=== PATIENT | female | born 1970 | race Caucasian/White ===

== ENCOUNTER 2016-06-10 23:50 | Emergency (ER) | payer BC ==
[~2016-06-10] VITALS: Ht 160 cm; Wt 83.9 kg
[~2016-06-10 23:50] MED LIST: 'PARAFON FORTE500 M1 PO; ALBUTEROL0.09 MG/A1 INH; AMOXICILLIN500 M1; AMOXICILLIN500 M2 PO; AMOXICILLIN500 MG PO; ANAPROX DS550 MG PO; ARTHROTEC 50 MG75 MG PO; ATIVAN0.5 MG PO; AUGMENTIN 500 M1 TAB PO; AUGMENTIN 875875 MG PO; BACTRIM DS 8001 TA1 PO; CEFADROXIL500 M1 PO; CEFDINIR300 MG PO; CIPRO500 MG PO; CIPROFLOXACIN500 MG PO; CLARITIN10 MG; CLARITIN10 MG PO; DAILY MULTIPLE1 TA6 PO; DAYPRO600 M1 PO; DIFLUCAN150 MG PO; FLONASE 0.05% 121 EA NAS; FLONASE ALLERG9.9 ML NS; HYDROCODONE BIT1 T11 PO; LEVAQUIN500 M2 PO; MACROBID100 M1 PO; MEDROL DOSEPAK4 MG PO; MOTRIN800 MG PO; NAPROSYN500 MG PO; NORCO 325 MG-51 TAB PO; PREDNICOT20 MG PO; PREDNISONE10 MG PO; PREDNISONE20 M1 PO; PROPRANOLOL HCL20 MG PO; PYRIDIUM200 MG PO; ROBAXIN750 MG PO; ROBITUSSIN AC 110 ML PO; TOBRADEX 0.1%-0.5 ML OPH; TRAMADOL HCL50 MG PO; WELLBUTRIN XL300 MG PO; ZITHROMAX Z PA250 MG PO; ZITHROMAX250 MG PO; ZYRTEC10 MG PO
[2016-06-11] MEDS ORDERED: PROVERA10 MG PO
[2016-06-11] MEDS ORDERED: AMOXICILLIN500 M2 PO (01:16)
[2016-06-11] MEDS ORDERED: ROBITUSSIN AC 110 ML PO (01:16)
[2016-07-19] MEDS ORDERED: HYOSCYAMINE0.125 M1 PO (15:03)
[2016-08-03] MEDS ORDERED: ANAPROX DS550 MG PO (23:46)
== END 2016-06-11 01:23 | disposition home or self-care (01) ==
LOC: ED 23:50
DX: J40 Bronchitis, not specified as acute or chronic (principal); J01.90 Acute sinusitis, unspecified; F17.200 Nicotine dependence, unspecified, uncomplicated; Z79.899 Other long term (current) drug therapy

== ENCOUNTER 2016-11-19 23:10 | Emergency (ER) | payer BC ==
[~2016-11-19] VITALS: Ht 160 cm; Wt 90.7 kg
[~2016-11-19 23:10] MED LIST changes: +HYOSCYAMINE0.125 M1 PO; +PROVERA10 MG PO
[2016-11-19] MEDS ORDERED: AMOXICILLIN500 M2 PO (23:33)
[2016-11-19] MEDS ORDERED: VENTOLIN H0.09 MG/AC INH (23:33)
== END 2016-11-20 00:06 | disposition home or self-care (01) ==
LOC: ED 23:10
DX: J20.9 Acute bronchitis, unspecified (principal); J32.0 Chronic maxillary sinusitis; F17.200 Nicotine dependence, unspecified, uncomplicated; Z79.899 Other long term (current) drug therapy

== ENCOUNTER 2017-01-23 03:08 | Emergency (ER) | payer BC ==
[~2017-01-23] VITALS: Ht 160 cm; Wt 102.1 kg
[~2017-01-23 03:08] MED LIST changes: +VENTOLIN H0.09 MG/AC INH
[2017-01-23] MEDS ORDERED: KENALOG 0.1%80 GM T (03:38)
[2017-01-23] MEDS ORDERED: ZITHROMAX250 MG PO (03:38)
== END 2017-01-23 03:55 | disposition home or self-care (01) ==
LOC: ED 03:08
DX: J01.00 Acute maxillary sinusitis, unspecified (principal); L25.5 Unspecified contact dermatitis due to plants, except food; G89.29 Other chronic pain; Z79.899 Other long term (current) drug therapy

== ENCOUNTER 2017-02-04 01:26 | Emergency (ER) | payer BC ==
[~2017-02-04] VITALS: Ht 160 cm; Wt 95.3 kg
[~2017-02-04 01:26] MED LIST changes: +KENALOG 0.1%80 GM T
[2017-02-04] MEDS ORDERED: SILVADENE20 GM T (02:28)
== END 2017-02-04 02:50 | disposition home or self-care (01) ==
LOC: ED 01:26
DX: T22.10XA Burn of first degree of shoulder and upper limb, except wrist and hand, unspecified site, initial encounter (principal); T65.891A Toxic effect of other specified substances, accidental (unintentional), initial encounter; L23.1 Allergic contact dermatitis due to adhesives; G89.29 Other chronic pain; Z98.890 Other specified postprocedural states; Z79.899 Other long term (current) drug therapy; X58.XXXA Exposure to other specified factors, initial encounter; Y93.89 Activity, other specified; Y92.89 Other specified places as the place of occurrence of the external cause; Y99.9 Unspecified external cause status

== ENCOUNTER 2017-07-12 23:09 | Emergency (ER) | payer BC ==
[~2017-07-12] VITALS: Ht 160 cm; Wt 99.8 kg
[~2017-07-12 23:09] MED LIST changes: +SILVADENE20 GM T
[2017-07-12] MEDS ORDERED: ZITHROMAX250 MG PO (23:27)
[2017-07-12] MEDS ORDERED: FLONASE ALLERG9.9 ML NAS (23:27)
== END 2017-07-12 23:49 | disposition home or self-care (01) ==
LOC: ED 23:09
DX: J01.90 Acute sinusitis, unspecified (principal); F17.200 Nicotine dependence, unspecified, uncomplicated

== ENCOUNTER 2017-12-16 23:13 | Emergency (ER) | payer BC ==
[~2017-12-16] VITALS: Ht 160 cm; Wt 99.8 kg
[~2017-12-16 23:13] MED LIST changes: +FLONASE ALLERG9.9 ML NAS
[2017-12-16] MEDS ORDERED: FLONASE ALLERG9.9 ML NAS (23:40)
== END 2017-12-17 00:05 | disposition home or self-care (01) ==
LOC: ED 23:13
DX: J34.89 Other specified disorders of nose and nasal sinuses (principal); F17.200 Nicotine dependence, unspecified, uncomplicated; G89.29 Other chronic pain; Z79.899 Other long term (current) drug therapy; Z79.2 Long term (current) use of antibiotics

== ENCOUNTER 2018-06-09 04:25 | Emergency (ER) | payer OTHER ==
[~2018-06-09] VITALS: Ht 160 cm; Wt 95.3 kg
[2018-06-09] MEDS ORDERED: BENADRYL ALLERG25 M5 PO (04:47)
== END 2018-06-09 05:00 | disposition home or self-care (01) ==
LOC: ED 04:25
DX: R21 Rash and other nonspecific skin eruption (principal); G89.29 Other chronic pain; Z87.442 Personal history of urinary calculi; Z79.899 Other long term (current) drug therapy

== ENCOUNTER 2018-08-05 21:39 | Emergency (ER) | payer OTHER ==
[~2018-08-05] VITALS: Ht 160 cm; Wt 99.8 kg
[~2018-08-05 21:39] MED LIST changes: +BENADRYL ALLERG25 M5 PO
[2018-08-05] MEDS ORDERED: MOBIC7.5 MG PO (23:01)
== END 2018-08-05 23:15 | disposition home or self-care (01) ==
LOC: ED 21:39
DX: M25.562 Pain in left knee (principal); M17.0 Bilateral primary osteoarthritis of knee; F17.200 Nicotine dependence, unspecified, uncomplicated

== ENCOUNTER 2018-10-26 23:35 | Emergency (ER) | payer OTHER ==
[~2018-10-26] VITALS: Ht 167.6 cm; Wt 74.4 kg
[~2018-10-26 23:35] MED LIST changes: +MOBIC7.5 MG PO
[2018-10-27] MEDS ORDERED: ZITHROMAX250 MG PO (00:04)
== END 2018-10-27 00:27 | disposition home or self-care (01) ==
LOC: ED 23:35
DX: J01.00 Acute maxillary sinusitis, unspecified (principal); G89.29 Other chronic pain

== ENCOUNTER 2018-11-02 00:13 | Emergency (ER) | payer OTHER ==
[~2018-11-02] VITALS: Ht 160 cm; Wt 95.3 kg
[2018-11-02] MEDS ORDERED: AUGMENTIN 875875 MG PO (00:46)
[2018-11-02] MEDS ORDERED: DELTASONE20 M1 PO (00:46)
== END 2018-11-02 01:04 | disposition home or self-care (01) ==
LOC: ED 00:13
DX: J32.9 Chronic sinusitis, unspecified (principal); R42 Dizziness and giddiness; R05 Cough

== ENCOUNTER 2018-12-04 12:20 | Emergency (ER) | payer OTHER ==
[~2018-12-04] VITALS: Ht 160 cm; Wt 98.0 kg
[~2018-12-04 12:20] MED LIST changes: +DELTASONE20 M1 PO
[2018-12-04] MEDS ORDERED: MEDROL DOSEPAK4 MG PO (14:40)
[2018-12-04] MEDS ORDERED: Motrin,Rufen800 MG PO (14:40)
[2018-12-04] MEDS ORDERED: ROBAXIN500 M1 PO (14:40)
== END 2018-12-04 14:52 | disposition home or self-care (01) ==
LOC: ED 12:20
DX: G89.29 Other chronic pain (principal); M25.552 Pain in left hip; Z79.2 Long term (current) use of antibiotics; Z79.899 Other long term (current) drug therapy

== ENCOUNTER 2019-01-23 23:21 | Emergency (ER) | payer OTHER ==
[~2019-01-23] VITALS: Ht 160 cm; Wt 95.3 kg
[~2019-01-23 23:21] MED LIST changes: +Motrin,Rufen800 MG PO; +ROBAXIN500 M1 PO
[2019-01-24] MEDS ORDERED: Motrin,Rufen800 MG PO (00:43)
== END 2019-01-24 01:19 | disposition home or self-care (01) ==
LOC: ED 23:21
DX: S46.911A Strain of unspecified muscle, fascia and tendon at shoulder and upper arm level, right arm, initial encounter (principal); Z79.899 Other long term (current) drug therapy; Z79.2 Long term (current) use of antibiotics; W01.0XXA Fall on same level from slipping, tripping and stumbling without subsequent striking against object, initial encounter; Y93.89 Activity, other specified; Y92.89 Other specified places as the place of occurrence of the external cause; Y99.8 Other external cause status

== ENCOUNTER 2019-02-20 17:12 | Emergency (ER) | payer OTHER ==
[~2019-02-20] VITALS: Ht 157.4 cm; Wt 95.3 kg
[2019-02-20] MEDS ORDERED: AUGMENTIN 875-875 MG PO (17:39)
== END 2019-02-20 17:44 | disposition home or self-care (01) ==
LOC: ED 17:12
DX: J01.90 Acute sinusitis, unspecified (principal); J02.9 Acute pharyngitis, unspecified; F17.200 Nicotine dependence, unspecified, uncomplicated

== ENCOUNTER 2019-04-23 22:48 | Emergency (ER) | payer OTHER ==
[~2019-04-23] VITALS: Ht 157.4 cm; Wt 95.3 kg
[~2019-04-23 22:48] MED LIST changes: +AUGMENTIN 875-875 MG PO
[2019-04-24] MEDS ORDERED: PROAIR HFA8.5 GM INH (00:09)
[2019-04-24] MEDS ORDERED: ALLEGRA-D 24 H1 EACH PO (00:09)
== END 2019-04-24 00:19 | disposition home or self-care (01) ==
LOC: ED 22:48
DX: J20.9 Acute bronchitis, unspecified (principal); G43.909 Migraine, unspecified, not intractable, without status migrainosus; F17.200 Nicotine dependence, unspecified, uncomplicated

== ENCOUNTER 2019-05-02 15:42 | Emergency (ER) | payer OTHER ==
[~2019-05-02] VITALS: Ht 157.4 cm; Wt 95.3 kg
[~2019-05-02 15:42] MED LIST changes: +ALLEGRA-D 24 H1 EACH PO; +PROAIR HFA8.5 GM INH
[2019-05-02] MEDS ORDERED: DICLOFENAC SOD75 MG PO (15:47)
[2019-05-02] MEDS ORDERED: TESSALON PERLE100 M1 PO (16:18)
[2019-05-02] MEDS ORDERED: DOXYCYCLINE100 M3 PO (16:18)
== END 2019-05-02 16:56 | disposition home or self-care (01) ==
LOC: ED 15:42
DX: J18.9 Pneumonia, unspecified organism (principal); F17.200 Nicotine dependence, unspecified, uncomplicated

== ENCOUNTER → 2019-05-10 | Outpatient (CLI) | payer OTHER ==
[~2019-05-10] MED LIST changes: +DICLOFENAC SOD75 MG PO; +DOXYCYCLINE100 M3 PO; +TESSALON PERLE100 M1 PO
== END | disposition home or self-care (01) ==
LOC: RAD 13:24
DX: J98.4 Other disorders of lung (principal)

== ENCOUNTER 2019-07-17 22:35 | Emergency (ER) | payer OTHER ==
[~2019-07-17] VITALS: Ht 157.4 cm; Wt 95.3 kg
== END 2019-07-18 00:34 | disposition home or self-care (01) ==
LOC: ED 22:35
DX: G43.909 Migraine, unspecified, not intractable, without status migrainosus (principal); H53.149 Visual discomfort, unspecified; E07.9 Disorder of thyroid, unspecified; Z79.899 Other long term (current) drug therapy; Z79.2 Long term (current) use of antibiotics

== ENCOUNTER 2019-08-21 11:46 | Emergency (ER) | payer OTHER ==
[~2019-08-21] VITALS: Ht 157.4 cm; Wt 93.0 kg
[2019-08-21 13:56] LABS: BASO # 0.1 10*3/uL (0.0-0.1); BASO % 0.6 % (0.0-1.0); EOS # 0.3 10*3/uL (0.0-0.4); HEMATOCRIT 42.3 % (37.0-47.0); HEMOGLOBIN 13.3 g/dl (12.0-16.0); LYMPH # 1.1 10*3/uL (1.3-4.4); LYMPH % 13.6 % (27.0-41.0); MEAN CELL VOLUME 94.4 fl (81.0-99.0); MEAN CORPUSCULAR HGB 29.7 pg (27.0-31.0); MEAN CORPUSCULAR HGB CONC 31.4 g/dl (33.0-37.0); MEAN PLATELET VOLUME 10.9 fl (9.6-12.3); MONO # 0.7 10*3/uL (0.1-1.0); MONO % 8.7 % (3.0-9.0); NEUT % 72.8 % (47.0-73.0); PLATELET COUNT AUTOMATED 168 10*3/uL (130-400); RED BLOOD COUNT 4.48 10*6/uL (4.10-5.10); RED CELL DISTRI WIDTH 13.4 % (0-14.5); WHITE BLOOD COUNT 8.3 10*3/uL (4.8-10.8)
[2019-08-21 14:06] LABS: ALKALINE PHOSPHATASE 93 U/L (45-117); BUN 21 mg/dl (7-24); CHLORIDE 111 mmol/L (98-107); CREATININE 0.64 mg/dL (0.55-1.02); POTASSIUM 3.5 mmol/L (3.5-5.1); SGOT/AST 8 IU/L (3-35); SGPT/ALT 18 U/L (12-78); SODIUM 142 mmol/L (136-145); TOTAL PROTEIN 6.2 gm/dL (6.4-8.2)
[2019-08-21] MEDS ORDERED: ERYTHROCIN STE250 M2 PO (14:41)
[2019-08-21] MEDS ORDERED: PROVENTIL HFA6.7 GM INH (14:41)
== END 2019-08-21 14:50 | disposition home or self-care (01) ==
LOC: ED 11:46
PROVIDERS: Nurse Practitioner Family
DX: J98.8 Other specified respiratory disorders (principal); J02.9 Acute pharyngitis, unspecified; F41.9 Anxiety disorder, unspecified; F32.9 Major depressive disorder, single episode, unspecified; G43.909 Migraine, unspecified, not intractable, without status migrainosus; F17.200 Nicotine dependence, unspecified, uncomplicated; Z88.0 Allergy status to penicillin; Z88.8 Allergy status to other drugs, medicaments and biological substances; Z79.899 Other long term (current) drug therapy

== ENCOUNTER → 2020-02-16 | Outpatient (CLI) | payer OTHER ==
[~2020-02-16] MED LIST changes: +ERYTHROCIN STE250 M2 PO; +PROVENTIL HFA6.7 GM INH
== END | disposition home or self-care (01) ==
LOC: COVID19 02:55
PROVIDERS: ATTEND Family Medicine
DX: J45.21 Mild intermittent asthma with (acute) exacerbation (principal); Z11.59 Encounter for screening for other viral diseases

== ENCOUNTER → 2020-03-13 | Outpatient (CLI) | payer OTHER ==
[2020-03-13 15:40] LABS: BASO % 0.4 % (0.0-1.0); EOS # 0.4 10*3/uL (0.0-0.4); HEMATOCRIT 43.5 % (37.0-47.0); LYMPH # 1.4 10*3/uL (1.3-4.4); LYMPH % 17.4 % (27.0-41.0); MEAN CELL VOLUME 92.4 fl (81.0-99.0); MEAN CORPUSCULAR HGB 29.9 pg (27.0-31.0); MEAN CORPUSCULAR HGB CONC 32.4 g/dl (33.0-37.0); MONO # 0.6 10*3/uL (0.1-1.0); MONO % 7.9 % (3.0-9.0); NEUT # 5.5 10*3/uL (2.3-7.9); NEUT % 68.9 % (47.0-73.0); PLATELET COUNT AUTOMATED 217 10*3/uL (130-400); RED BLOOD COUNT 4.71 10*6/uL (4.10-5.10); RED CELL DISTRI WIDTH 13.7 % (0-14.5)
[2020-03-14 08:08] LABS: HEP B CORE AB, IGM Negative (Negative); HEPATITIS B SURFACE AG Negative (Negative); HEPATITIS C VIRUS ANTIBODY 0.7 s/co (0.0-0.9); RHEUMATOID ARTHRITIS FACTOR <10.0 IU/mL (0.0-13.9)
[2020-03-14 14:08] LABS: ANTI-RNP ANTIBODIES <0.2 AI (0.0-0.9)
[2020-03-15 00:06] LABS: CCP ANTIBODIES IGG/IGA 9 units (0-19); LUPUS DRVVT 42.4 sec (0.0-47.0); PTT-LA 39.7 sec (0.0-51.9)
[2020-03-15 01:07] LABS: LUPUS REFLEX INTERPRETATION Comment: (.)
[2020-03-17 17:06] LABS: HLA-B27 ANTIGEN Negative (.)
== END | disposition home or self-care (01) ==
LOC: LAB 15:04
PROVIDERS: ATTEND Orthopaedic Surgery
DX: M17.0 Bilateral primary osteoarthritis of knee (principal); M25.561 Pain in right knee; M25.562 Pain in left knee

== ENCOUNTER → 2020-05-04 | Outpatient (CLI) | payer OTHER ==
[2020-05-04 12:28] LABS: BASO # 0.1 10*3/uL (0.0-0.1); BASO % 0.8 % (0.0-1.0); EOS # 0.5 10*3/uL (0.0-0.4); EOS % 6.9 % (1.0-4.0); HEMATOCRIT 42.5 % (37.0-47.0); LYMPH # 1.5 10*3/uL (1.3-4.4); LYMPH % 23.1 % (27.0-41.0); MEAN CELL VOLUME 92.2 fl (81.0-99.0); MEAN CORPUSCULAR HGB 30.2 pg (27.0-31.0); MEAN CORPUSCULAR HGB CONC 32.7 g/dl (33.0-37.0); MEAN PLATELET VOLUME 10.9 fl (9.6-12.3); MONO # 0.5 10*3/uL (0.1-1.0); MONO % 7.7 % (3.0-9.0); NEUT % 61.2 % (47.0-73.0); PLATELET COUNT AUTOMATED 218 10*3/uL (130-400); RED BLOOD COUNT 4.61 10*6/uL (4.10-5.10); RED CELL DISTRI WIDTH 13.4 % (0-14.5); WHITE BLOOD COUNT 6.5 10*3/uL (4.8-10.8)
[2020-05-04 12:48] LABS: ALBUMIN 3.4 gm/dl (3.1-4.5); ALKALINE PHOSPHATASE 73 U/L (45-117); BUN 17 mg/dl (7-24); CHLORIDE 109 mmol/L (98-107); CREATININE 0.71 mg/dL (0.55-1.02); SGOT/AST 14 IU/L (3-35); SGPT/ALT 19 U/L (12-78); SODIUM 141 mmol/L (136-145); TOTAL PROTEIN 6.8 gm/dL (6.4-8.2)
== END | disposition home or self-care (01) ==
LOC: LAB 11:48
PROVIDERS: ATTEND Orthopaedic Surgery
DX: Z01.818 Encounter for other preprocedural examination (principal); J44.9 Chronic obstructive pulmonary disease, unspecified; J45.909 Unspecified asthma, uncomplicated; R53.83 Other fatigue; M19.90 Unspecified osteoarthritis, unspecified site; Z79.899 Other long term (current) drug therapy

== ENCOUNTER → 2020-08-04 | Outpatient (CLI) | payer OTHER ==
[2020-08-04 15:25] LABS: BASO % 0.5 % (0.0-1.0); BILIRUBIN Negative (Negative); BLOOD 3+ (Negative); CLARITY Cloudy (Clear); COLOR Yellow (Yellow); EOS # 0.4 10*3/uL (0.0-0.4); EOS % 5.1 % (1.0-4.0); GLUCOSE Negative (Negative); HEMATOCRIT 44.7 % (37.0-47.0); KETONE Negative (Negative); LEUKO ESTERASE 2+ (Negative); LYMPH # 1.6 10*3/uL (1.3-4.4); LYMPH % 18.8 % (27.0-41.0); MEAN CORPUSCULAR HGB 29.4 pg (27.0-31.0); MEAN PLATELET VOLUME 10.9 fl (9.6-12.3); MONO # 0.6 10*3/uL (0.1-1.0); MONO % 7.2 % (3.0-9.0); NEUT # 5.7 10*3/uL (2.3-7.9); NITRITE Negative (Negative); PH 5.5 (4.5-8.0); PLATELET COUNT AUTOMATED 223 10*3/uL (130-400); RED BLOOD COUNT 4.86 10*6/uL (4.10-5.10); RED CELL DISTRI WIDTH 12.7 % (0-14.5); UROBILINOGEN 0.2 E.U./dl (0.0-1.0); WHITE BLOOD COUNT 8.3 10*3/uL (4.8-10.8)
[2020-08-04 15:35] LABS: ACT PARTIAL THROMBO TIME 28.8 SECONDS (20.0-32.1)
[2020-08-04 15:37] LABS: BACTERIA 2+; RBC 21-30 rbc/hpf (0-2); WBC 51-100 wbc/hpf (0-5)
[2020-08-04 15:40] LABS: ALBUMIN 3.2 gm/dl (3.1-4.5); ALKALINE PHOSPHATASE 94 U/L (45-117); BUN 15 mg/dl (7-24); CHLORIDE 109 mmol/L (98-107); POTASSIUM 3.8 mmol/L (3.5-5.1); SGOT/AST 11 IU/L (3-35); SGPT/ALT 18 U/L (12-78); SODIUM 142 mmol/L (136-145); TOTAL PROTEIN 6.6 gm/dL (6.4-8.2)
== END | disposition home or self-care (01) ==
LOC: LAB 14:51
PROVIDERS: ATTEND Orthopaedic Surgery
DX: Z01.812 Encounter for preprocedural laboratory examination (principal); J45.909 Unspecified asthma, uncomplicated; J44.9 Chronic obstructive pulmonary disease, unspecified; M19.90 Unspecified osteoarthritis, unspecified site; Z79.899 Other long term (current) drug therapy

== ENCOUNTER 2021-02-06 08:10 | Emergency (ER) | payer OTHER ==
[~2021-02-06] VITALS: Ht 157.4 cm; Wt 88.9 kg
[2021-02-06] MEDS ORDERED: TYLENOL325 M1 PO (09:14)
[2021-02-06] MEDS ORDERED: NAPROXEN250 MG PO (09:14)
== END 2021-02-06 09:17 | disposition home or self-care (01) ==
LOC: ED 08:10
DX: M25.521 Pain in right elbow (principal); Z88.0 Allergy status to penicillin; Z88.1 Allergy status to other antibiotic agents; X50.9XXA Other and unspecified overexertion or strenuous movements or postures, initial encounter; Y93.89 Activity, other specified; Y92.89 Other specified places as the place of occurrence of the external cause; Y99.8 Other external cause status

== ENCOUNTER → 2021-09-20 | Day surgery (SDC) | payer OTHER ==
[~2021-09-20] VITALS: Ht 157.4 cm; Wt 97.1 kg
[~2021-09-20] MED LIST changes: +ADV 100/50 INH; +CYMBALTA30 MG PO; +NAPROXEN250 MG PO; +TYLENOL325 M1 PO
[2021-09-20 07:08] VITALS: BP 142/91
[2021-09-20 07:53] VITALS: BP 113/68
[2021-09-20 08:08] VITALS: BP 122/81
[2021-09-20 08:23] VITALS: BP 118/80
== END | disposition home or self-care (01) ==
LOC: SDC 09-17 14:00
PROVIDERS: ATTEND Orthopaedic Surgery
DX: M65.332 Trigger finger, left middle finger (principal); M65.842 Other synovitis and tenosynovitis, left hand; M65.331 Trigger finger, right middle finger; F41.9 Anxiety disorder, unspecified; F32.9 Major depressive disorder, single episode, unspecified; G43.909 Migraine, unspecified, not intractable, without status migrainosus; F17.210 Nicotine dependence, cigarettes, uncomplicated; Z79.899 Other long term (current) drug therapy

== ENCOUNTER 2021-10-31 20:51 | Emergency (ER) | payer OTHER ==
[~2021-10-31] VITALS: Ht 160 cm; Wt 95.7 kg
[2021-10-31] MEDS ORDERED: NAPROXEN250 MG PO (22:08)
== END 2021-10-31 22:11 | disposition home or self-care (01) ==
LOC: ED 20:51
DX: M25.532 Pain in left wrist (principal); Z79.899 Other long term (current) drug therapy

== ENCOUNTER → 2021-11-30 | Outpatient (CLI) | payer OTHER | END | disposition home or self-care (01) | LOC: ORTHO 01:45 | PROVIDERS: ATTEND Orthopaedic Surgery | DX: S43.52XA Sprain of left acromioclavicular joint, initial encounter (principal); X58.XXXA Exposure to other specified factors, initial encounter; Y93.89 Activity, other specified; Y92.89 Other specified places as the place of occurrence of the external cause; Y99.8 Other external cause status ==

== ENCOUNTER 2022-02-01 23:03 | Emergency (ER) | payer OTHER ==
[2022-02-02 01:38] LABS: BASO # 0.1 10*3/uL (0.0-0.1); BASO % 0.7 % (0.0-1.0); EOS # 0.5 10*3/uL (0.0-0.4); EOS % 5.1 % (1.0-4.0); HEMATOCRIT 42.5 % (37.0-47.0); LYMPH # 2.2 10*3/uL (1.3-4.4); LYMPH % 22.3 % (27.0-41.0); MEAN CELL VOLUME 92.6 fl (81.0-99.0); MEAN CORPUSCULAR HGB 30.7 pg (27.0-31.0); MEAN CORPUSCULAR HGB CONC 33.2 g/dl (33.0-37.0); MEAN PLATELET VOLUME 10.8 fl (9.6-12.3); MONO # 0.9 10*3/uL (0.1-1.0); MONO % 8.5 % (3.0-9.0); NEUT # 6.3 10*3/uL (2.3-7.9); NEUT % 62.8 % (47.0-73.0); PLATELET COUNT AUTOMATED 230 10*3/uL (130-400); RED BLOOD COUNT 4.59 10*6/uL (4.10-5.10); RED CELL DISTRI WIDTH 13.5 % (0-14.5)
[2022-02-02 01:55] LABS: ALKALINE PHOSPHATASE 93 U/L (45-117); BUN 16 mg/dl (7-24); CHLORIDE 107 mmol/L (98-107); CREATININE 0.75 mg/dL (0.55-1.02); POTASSIUM 3.4 mmol/L (3.5-5.1); SGOT/AST 14 IU/L (3-35); SGPT/ALT 24 U/L (12-78); SODIUM 139 mmol/L (136-145); TOTAL PROTEIN 6.4 gm/dL (6.4-8.2)
[2022-02-02] MEDS ORDERED: VIBRAMYCIN100 MG PO (03:58)
== END 2022-02-02 04:01 | disposition left against medical advice (07) ==
LOC: ED 23:03
PROVIDERS: Emergency Medicine
DX: S81.802A Unspecified open wound, left lower leg, initial encounter (principal); Z79.899 Other long term (current) drug therapy; X58.XXXA Exposure to other specified factors, initial encounter; Y93.89 Activity, other specified; Y92.89 Other specified places as the place of occurrence of the external cause; Y99.8 Other external cause status

== ENCOUNTER → 2022-03-07 | Day surgery (SDC) | payer OTHER ==
[2022-03-05 12:45] VITALS: BP 143/89
[2022-03-06 13:34] LABS: BUN 9 mg/dl (7-24); CHLORIDE 109 mmol/L (98-107); CREATININE 0.62 mg/dL (0.55-1.02); POTASSIUM 3.5 mmol/L (3.5-5.1); SODIUM 144 mmol/L (136-145)
[~2022-03-07] VITALS: Ht 157.4 cm; Wt 93.9 kg
[~2022-03-07] MED LIST changes: +HYDROCODONE-AC1 EAC1 PO; +VIBRAMYCIN100 MG PO
[2022-03-07 07:00] VITALS: BP 132/87
[2022-03-07 10:27] VITALS: BP 158/98
[2022-03-07 10:42] VITALS: BP 112/78
[2022-03-07 10:57] VITALS: BP 125/80
[2022-03-07 11:12] VITALS: BP 123/77
[2022-03-07 11:27] VITALS: BP 114/67
== END | disposition home or self-care (01) ==
LOC: SDC 03-05 12:30
PROVIDERS: ATTEND Orthopaedic Surgery
DX: M75.42 Impingement syndrome of left shoulder (principal); M19.012 Primary osteoarthritis, left shoulder; F32.9 Major depressive disorder, single episode, unspecified; J43.9 Emphysema, unspecified; F17.210 Nicotine dependence, cigarettes, uncomplicated; Z98.890 Other specified postprocedural states; Z79.899 Other long term (current) drug therapy

== ENCOUNTER → 2022-08-22 | Day surgery (SDC) | payer OTHER ==
[2022-08-16 10:38] LABS: BUN 13 mg/dl (9-23); CHLORIDE 105 mmol/L (98-107)
[~2022-08-22] VITALS: Ht 157.4 cm; Wt 89.8 kg
[2022-08-22 07:20] VITALS: BP 122/68
[2022-08-22 08:05] VITALS: BP 110/74
[2022-08-22 08:20] VITALS: BP 114/73
[2022-08-22 08:35] VITALS: BP 114/71
== END | disposition home or self-care (01) ==
LOC: SDC 08-19 08:45
PROVIDERS: ATTEND Orthopaedic Surgery
DX: M65.321 Trigger finger, right index finger (principal); M65.331 Trigger finger, right middle finger; M19.042 Primary osteoarthritis, left hand; M65.841 Other synovitis and tenosynovitis, right hand; F41.9 Anxiety disorder, unspecified; F32.A Depression, unspecified; G43.909 Migraine, unspecified, not intractable, without status migrainosus; J43.9 Emphysema, unspecified; F17.210 Nicotine dependence, cigarettes, uncomplicated

== ENCOUNTER 2022-12-24 19:08 | Emergency (ER) | payer OTHER ==
[~2022-12-24] VITALS: Ht 160 cm; Wt 88.5 kg
[2022-12-24] MEDS ORDERED: ALLERGY RELIEF1 EAC4 PO (20:33)
[2022-12-24] MEDS ORDERED: AVPAK AZITHROM250 M1 PO (20:33)
[2022-12-24] MEDS ORDERED: MUCUS RELIEF600 MG PO (20:33)
[2022-12-24] MEDS ORDERED: BUPROPION HYDR150 M3 PO (20:34)
[2022-12-24] MEDS ORDERED: VRAYLAR1.5 MG PO (20:34)
[2022-12-24] MEDS ORDERED: BUSPAR15 MG PO (20:35)
[2022-12-24] MEDS ORDERED: ALLERGY RELIE15.8 ML INH (20:35)
[2022-12-24] MEDS ORDERED: DULERA 200 MCG-13 GM INH (20:36)
[2022-12-24] MEDS ORDERED: VENT7GM INH (20:38)
[2022-12-24] MEDS ORDERED: MONTELUKAST SOD10 MG PO (20:38)
[2022-12-24] MEDS ORDERED: AMMONIUM LACTA227 GM T (20:39)
[2022-12-24 21:54] LABS: BASO % 0.4 % (0.0-1.0); EOS # 0.4 10*3/uL (0.0-0.4); EOS % 4.1 % (1.0-4.0); HEMATOCRIT 41.5 % (37.0-47.0); LYMPH # 2.5 10*3/uL (1.3-4.4); LYMPH % 25.8 % (27.0-41.0); MEAN CELL VOLUME 92.2 fl (81.0-99.0); MEAN CORPUSCULAR HGB 30.2 pg (27.0-31.0); MEAN CORPUSCULAR HGB CONC 32.8 g/dl (33.0-37.0); MEAN PLATELET VOLUME 10.8 fl (9.6-12.3); MONO # 0.7 10*3/uL (0.1-1.0); MONO % 7.3 % (3.0-9.0); NEUT # 5.9 10*3/uL (2.3-7.9); NEUT % 62.1 % (47.0-73.0); PLATELET COUNT AUTOMATED 228 10*3/uL (130-400); RED CELL DISTRI WIDTH 13.3 % (0-14.5); WHITE BLOOD COUNT 9.5 10*3/uL (4.8-10.8)
[2022-12-24 22:07] LABS: ACT PARTIAL THROMBO TIME 28.9 SECONDS (20.0-32.1); INTERNATIONAL NORM RATIO 1.1 (2.0-3.5)
[2022-12-24 22:18] LABS: ALKALINE PHOSPHATASE 90 U/L (46-116); BUN 12 mg/dl (9-23); CHLORIDE 106 mmol/L (98-107); POTASSIUM 3.1 mmol/L (3.4-5.1); SGPT/ALT 17 U/L (10-49); TOTAL PROTEIN 6.1 gm/dL (6.0-8.0)
[2022-12-25] MEDS ORDERED: AMOX-CLAV 875-1 EACH PO (02:20)
[2022-12-26] MEDS ORDERED: VIBRAMYCIN HYC100 MG PO (11:04)
== END 2022-12-25 02:34 | disposition home or self-care (01) ==
LOC: ED 19:08
PROVIDERS: Physician Assistant Medical
DX: J18.9 Pneumonia, unspecified organism (principal); Z20.822 Contact with and (suspected) exposure to COVID-19; J44.9 Chronic obstructive pulmonary disease, unspecified; F17.200 Nicotine dependence, unspecified, uncomplicated; Z79.899 Other long term (current) drug therapy; Z79.2 Long term (current) use of antibiotics; Z98.890 Other specified postprocedural states

== ENCOUNTER 2022-12-26 09:04 | Emergency (ER) | payer OTHER ==
[~2022-12-26] VITALS: Ht 160 cm; Wt 88.5 kg
[~2022-12-26 09:04] MED LIST changes: +ALLERGY RELIE15.8 ML INH; +ALLERGY RELIEF1 EAC4 PO; +AMMONIUM LACTA227 GM T; +AMOX-CLAV 875-1 EACH PO; +AVPAK AZITHROM250 M1 PO; +BUPROPION HYDR150 M3 PO; +BUSPAR15 MG PO; +DULERA 200 MCG-13 GM INH; +MONTELUKAST SOD10 MG PO; +MUCUS RELIEF600 MG PO; +VENT7GM INH; +VRAYLAR1.5 MG PO
[2022-12-26 09:51] LABS: BASO # 0.1 10*3/uL (0.0-0.1); BASO % 0.7 % (0.0-1.0); EOS # 0.4 10*3/uL (0.0-0.4); EOS % 4.2 % (1.0-4.0); HEMATOCRIT 43.4 % (37.0-47.0); LYMPH # 1.5 10*3/uL (1.3-4.4); LYMPH % 18.2 % (27.0-41.0); MEAN CELL VOLUME 92.5 fl (81.0-99.0); MEAN CORPUSCULAR HGB 30.9 pg (27.0-31.0); MEAN CORPUSCULAR HGB CONC 33.4 g/dl (33.0-37.0); MEAN PLATELET VOLUME 11.1 fl (9.6-12.3); MONO # 0.6 10*3/uL (0.1-1.0); NEUT # 5.8 10*3/uL (2.3-7.9); NEUT % 69.5 % (47.0-73.0); PLATELET COUNT AUTOMATED 224 10*3/uL (130-400); RED BLOOD COUNT 4.69 10*6/uL (4.10-5.10); RED CELL DISTRI WIDTH 13.5 % (0-14.5); WHITE BLOOD COUNT 8.3 10*3/uL (4.8-10.8)
[2022-12-26 10:15] LABS: ALKALINE PHOSPHATASE 95 U/L (46-116); BUN 15 mg/dl (9-23); CHLORIDE 107 mmol/L (98-107); POTASSIUM 3.3 mmol/L (3.4-5.1); SGPT/ALT 19 U/L (10-49); TOTAL PROTEIN 6.6 gm/dL (6.0-8.0)
[2022-12-26] MEDS ORDERED: VIBRAMYCIN HYC100 MG PO (11:04)
== END 2022-12-26 11:35 | disposition home or self-care (01) ==
LOC: ED 09:04
PROVIDERS: Internal Medicine
DX: J18.9 Pneumonia, unspecified organism (principal); F41.9 Anxiety disorder, unspecified; F32.A Depression, unspecified; G43.909 Migraine, unspecified, not intractable, without status migrainosus; J45.909 Unspecified asthma, uncomplicated; Z98.890 Other specified postprocedural states; Z87.891 Personal history of nicotine dependence

== ENCOUNTER 2023-02-07 05:47 | Emergency (ER) | payer OTHER ==
[~2023-02-07] VITALS: Ht 157.4 cm; Wt 86.2 kg
[~2023-02-07 05:47] MED LIST changes: +VIBRAMYCIN HYC100 MG PO
== END 2023-02-07 06:35 | disposition home or self-care (01) ==
LOC: ED 05:47
DX: S93.402A Sprain of unspecified ligament of left ankle, initial encounter (principal); F41.9 Anxiety disorder, unspecified; F32.A Depression, unspecified; G43.909 Migraine, unspecified, not intractable, without status migrainosus; J45.909 Unspecified asthma, uncomplicated; Z98.890 Other specified postprocedural states; Z87.891 Personal history of nicotine dependence; X50.1XXA Overexertion from prolonged static or awkward postures, initial encounter; Y93.89 Activity, other specified; Y92.009 Unspecified place in unspecified non-institutional (private) residence as the place of occurrence of the external cause; Y99.8 Other external cause status

== ENCOUNTER 2023-05-04 17:01 | Emergency (ER) | payer OTHER ==
[~2023-05-04] VITALS: Ht 152.4 cm; Wt 88.0 kg
[2023-05-04 17:57] LABS: BASO % 0.4 % (0.0-1.0); EOS # 0.3 10*3/uL (0.0-0.4); EOS % 4.5 % (1.0-4.0); HEMATOCRIT 40.8 % (37.0-47.0); LYMPH # 1.5 10*3/uL (1.3-4.4); LYMPH % 27.3 % (27.0-41.0); MEAN CELL VOLUME 91.9 fl (81.0-99.0); MEAN CORPUSCULAR HGB 31.1 pg (27.0-31.0); MEAN CORPUSCULAR HGB CONC 33.8 g/dl (33.0-37.0); MEAN PLATELET VOLUME 10.8 fl (9.6-12.3); MONO # 0.7 10*3/uL (0.1-1.0); MONO % 12.8 % (3.0-9.0); NEUT % 54.6 % (47.0-73.0); PLATELET COUNT AUTOMATED 197 10*3/uL (130-400); RED BLOOD COUNT 4.44 10*6/uL (4.10-5.10); RED CELL DISTRI WIDTH 13.6 % (0-14.5); WHITE BLOOD COUNT 5.5 10*3/uL (4.8-10.8)
[2023-05-04 18:23] LABS: ALKALINE PHOSPHATASE 84 U/L (46-116); BUN 15 mg/dl (9-23); CHLORIDE 109 mmol/L (98-107); POTASSIUM 3.7 mmol/L (3.4-5.1); SGPT/ALT 14 U/L (5-49); TOTAL PROTEIN 6.5 gm/dL (6.0-8.0)
== END 2023-05-04 18:42 | disposition home or self-care (01) ==
LOC: ED 17:01
PROVIDERS: Physician Assistant Medical
DX: U07.1 COVID-19 (principal); F41.9 Anxiety disorder, unspecified; F32.A Depression, unspecified; F17.210 Nicotine dependence, cigarettes, uncomplicated; Z79.899 Other long term (current) drug therapy; Z98.890 Other specified postprocedural states

== ENCOUNTER → 2023-12-05 | Outpatient (CLI) | payer OTHER | END | disposition home or self-care (01) | LOC: ORTHO 01:21 | PROVIDERS: ATTEND Orthopaedic Surgery | DX: M17.11 Unilateral primary osteoarthritis, right knee (principal); M25.561 Pain in right knee ==

== ENCOUNTER → 2023-12-22 | Outpatient (CLI) | payer OTHER | END | disposition home or self-care (01) | LOC: ORTHO 01:52 → CT 13:00 | PROVIDERS: ATTEND Orthopaedic Surgery | DX: M17.11 Unilateral primary osteoarthritis, right knee (principal); M25.761 Osteophyte, right knee; R60.0 Localized edema; M25.461 Effusion, right knee; K57.30 Diverticulosis of large intestine without perforation or abscess without bleeding ==

== ENCOUNTER 2023-12-25 22:44 | Emergency (ER) | payer OTHER ==
[~2023-12-25] VITALS: Ht 157.4 cm; Wt 86.2 kg
== END 2023-12-26 00:45 | disposition home or self-care (01) ==
LOC: ED 22:44
DX: S60.051A Contusion of right little finger without damage to nail, initial encounter (principal); M19.041 Primary osteoarthritis, right hand; F41.9 Anxiety disorder, unspecified; F32.A Depression, unspecified; G43.909 Migraine, unspecified, not intractable, without status migrainosus; J45.909 Unspecified asthma, uncomplicated; Z98.890 Other specified postprocedural states; W22.8XXA Striking against or struck by other objects, initial encounter; Y93.89 Activity, other specified; Y92.89 Other specified places as the place of occurrence of the external cause; Y99.8 Other external cause status

== ENCOUNTER 2024-02-17 01:38 | Inpatient (IN) | payer OTHER ==
[2024-02-13 11:29] LABS: BILIRUBIN Negative (Negative); BLOOD Negative (Negative); CLARITY Clear (Clear); COLOR Yellow (Yellow); GLUCOSE Negative (Negative); KETONE Negative (Negative); LEUKO ESTERASE 1+ (Negative); NITRITE Negative (Negative); PH 6.5 (4.5-8.0); SPECIFIC GRAVITY 1.015 (1.001-1.030); UROBILINOGEN 0.2 E.U./dl (0.0-1.0)
[2024-02-13 11:37] LABS: MUCOUS TRACE
[2024-02-13 11:42] LABS: ACT PARTIAL THROMBO TIME 28.8 SECONDS (20.0-32.1)
[2024-02-13 11:46] LABS: ALKALINE PHOSPHATASE 88 U/L (46-116); BUN 13 mg/dl (9-23); CHLORIDE 107 mmol/L (98-107); POTASSIUM 3.8 mmol/L (3.4-5.1); SGPT/ALT 13 U/L (5-49); TOTAL PROTEIN 6.4 gm/dL (6.0-8.0)
[~2024-02-17] VITALS: Ht 157.4 cm; Wt 90.0 kg
[2024-02-17] VITALS (9 sets, daily range): BP systolic 91–139; BP diastolic 54–88
[~2024-02-17 01:38] MED LIST changes: +ZOLOFT50 MG PO
[2024-02-17] MEDS ORDERED: VANCOMYCIN HYDROCHLORIDE IV SCH (07:00)
[2024-02-17] MEDS ORDERED: Lactated Ringer's Solution 1,000 ML IV ONE ×3 (07:10→10:24)
[2024-02-17] MEDS ORDERED: TRANEXAMIC ACID IN NACL,ISO-OS 100 ML IV ONE ×2 (07:15→07:17)
[2024-02-17] MEDS ORDERED: Vancomycin Hydrochloride 250 ML IV ONE (07:18)
[2024-02-17] MEDS ORDERED: Bupivacaine Hydrochloride/Ep2 30 ML VIAL ONE (07:41)
[2024-02-17] MEDS ORDERED: Ondansetron Hydrochloride 4 MG/2 ML VIAL IV PRN (08:05)
[2024-02-17] MEDS ORDERED: Acetaminophen/Oxycodone 5 MG/325 MG TABLET PO PRN (08:10)
[2024-02-17] MEDS ORDERED: MORPHINE SULFATE IV PRN (08:10)
[2024-02-17] MEDS ORDERED: MORPHINE Sulfate 2 MG/ML SYR IV PRN (08:20)
[2024-02-17] MEDS ORDERED: Cholecalciferol 2,000 UNIT TABLET (50 MCG) PO SCH (10:00)
[2024-02-17] MEDS ORDERED: DOCUSATE SODIUM 100 MG CAP PO SCH (10:00)
[2024-02-17] MEDS ORDERED: ACETAMINOPHEN 100 ML IV ONE (11:02)
[2024-02-17] MEDS ORDERED: Ropivacaine Hydrochloride 5 MG/ML 20 ML AMP IJ ONE (12:15)
[2024-02-17] MEDS ORDERED: PROPOFOL 200 MG/20 ML VIAL IV ONE (14:44)
[2024-02-17] MEDS ORDERED: Phenylephrine Hydrochloride 1 MG/10 ML SYRINGE IV ONE (14:44)
[2024-02-17] MEDS ORDERED: fentaNYL CITRATE 100 MCG/2 ML VIAL IV ONE (14:44)
[2024-02-17] MEDS ORDERED: Dexamethasone Sodium Phospha 4 MG/ML VIAL IV ONE (14:44)
[2024-02-17] MEDS ORDERED: Midazolam Hydrochloride 2 MG/2 ML VIAL IV ONE (14:44)
[2024-02-17] MEDS ORDERED: Ondansetron Hydrochloride 4 MG/2 ML VIAL IV ONE (14:44)
[2024-02-17] MEDS ORDERED: Vancomycin Hydrochloride 1,000 MG in SODIUM CHLORIDE 0.9% 250 ML IV SCH (20:00)
[2024-02-17] MEDS ORDERED: Ketorolac Tromethamine 15 MG/ML VIAL IV ONE (22:15)
[2024-02-18] VITALS: BP 120/73
[2024-02-18 06:11] LABS: BASO % 0.1 % (0.0-1.0); HEMATOCRIT 41.9 % (37.0-47.0); LYMPH # 1.2 10*3/uL (1.3-4.4); MEAN CELL VOLUME 93.7 fl (81.0-99.0); MEAN CORPUSCULAR HGB 30.6 pg (27.0-31.0); MEAN CORPUSCULAR HGB CONC 32.7 g/dl (33.0-37.0); MEAN PLATELET VOLUME 10.9 fl (9.6-12.3); MONO # 1.4 10*3/uL (0.1-1.0); MONO % 6.9 % (3.0-9.0); NEUT # 17.8 10*3/uL (2.3-7.9); NEUT % 86.3 % (47.0-73.0); PLATELET COUNT AUTOMATED 281 10*3/uL (130-400); RED BLOOD COUNT 4.47 10*6/uL (4.10-5.10); RED CELL DISTRI WIDTH 13.8 % (0-14.5); WHITE BLOOD COUNT 20.6 10*3/uL (4.8-10.8)
[2024-02-18 06:48] LABS: BUN 15 mg/dl (9-23); CHLORIDE 102 mmol/L (98-107); POTASSIUM 4.7 mmol/L (3.4-5.1)
[2024-02-18 08:00] VITALS: BP 122/76
[2024-02-18] MEDS ORDERED: ASPIRIN ENTERIC COATED 81 MG TAB PO SCH (10:00)
[2024-02-18] MEDS ORDERED: Sertraline Hydrochloride 50 MG TAB PO SCH (10:00)
[2024-02-18 12:00] VITALS: BP 130/73
[2024-02-18 15:49] VITALS: BP 135/79
[2024-02-18 20:00] VITALS: BP 123/71
[2024-02-19] VITALS: BP 118/72
[2024-02-19 06:14] LABS: HEMATOCRIT 39.5 % (37.0-47.0); MEAN CELL VOLUME 93.6 fl (81.0-99.0); MEAN CORPUSCULAR HGB 30.3 pg (27.0-31.0); MEAN CORPUSCULAR HGB CONC 32.4 g/dl (33.0-37.0); MEAN PLATELET VOLUME 11.7 fl (9.6-12.3); PLATELET COUNT AUTOMATED 220 10*3/uL (130-400); RED BLOOD COUNT 4.22 10*6/uL (4.10-5.10); RED CELL DISTRI WIDTH 14.2 % (0-14.5); WHITE BLOOD COUNT 12.1 10*3/uL (4.8-10.8)
[2024-02-19 06:16] LABS: MANUAL DIFF REFLEX YES
[2024-02-19 06:42] LABS: BURR CELLS FEW; PLATELET SUFFICIENCY NORMAL (NORMAL); POLYCHROMASIA SLIGHT; ROULEAUX SLIGHT; TOTAL CELLS COUNTED 100 #CELLS
[2024-02-19 08:00] VITALS: BP 114/70
[2024-02-19 12:00] VITALS: BP 125/78
[2024-02-19 16:00] VITALS: BP 118/85
[2024-02-19 20:00] VITALS: BP 129/79
[2024-02-20 06:42] LABS: BASO % 0.3 % (0.0-1.0); EOS # 0.3 10*3/uL (0.0-0.4); EOS % 2.2 % (1.0-4.0); HEMATOCRIT 37.1 % (37.0-47.0); LYMPH # 1.5 10*3/uL (1.3-4.4); LYMPH % 13.4 % (27.0-41.0); MEAN CORPUSCULAR HGB 31.1 pg (27.0-31.0); MEAN CORPUSCULAR HGB CONC 33.4 g/dl (33.0-37.0); MEAN PLATELET VOLUME 11.2 fl (9.6-12.3); MONO # 1.2 10*3/uL (0.1-1.0); MONO % 10.4 % (3.0-9.0); NEUT # 8.3 10*3/uL (2.3-7.9); NEUT % 73.1 % (47.0-73.0); PLATELET COUNT AUTOMATED 200 10*3/uL (130-400); RED BLOOD COUNT 3.99 10*6/uL (4.10-5.10); RED CELL DISTRI WIDTH 13.9 % (0-14.5); WHITE BLOOD COUNT 11.3 10*3/uL (4.8-10.8)
[2024-02-20 08:00] VITALS: BP 114/71
[2024-02-20] MEDS ORDERED: buPROPion XL 150 MG TAB PO SCH (10:00)
[2024-02-20] MEDS ORDERED: ASPIRIN ADULT L81 M2 PO (10:20)
[2024-02-20] MEDS ORDERED: VITAMIN D350 MCG PO (10:20)
[2024-02-20 12:00] VITALS: BP 123/80
[2024-02-20] MEDS ORDERED: Sertraline Hydrochloride 50 MG TAB PO SCH (22:00)
== END 2024-02-20 14:49 | disposition home or self-care (01) | DRG 326 ==
LOC: SDC 01:38 → 4E 11:37
PROVIDERS: Orthopaedic Surgery; ADMIT Internal Medicine; ATTEND Internal Medicine
PROC: 0SRC0JZ Replacement of Right Knee Joint with Synthetic Substitute, Open Approach (ICD-10-PCS; principal; 2024-02-17)
PROC: 3E0T3BZ Introduction of Anesthetic Agent into Peripheral Nerves and Plexi, Percutaneous Approach (ICD-10-PCS; 2024-02-17)
DX: M17.11 Unilateral primary osteoarthritis, right knee (principal); G89.18 Other acute postprocedural pain; N20.0 Calculus of kidney; F32.A Depression, unspecified; Z79.899 Other long term (current) drug therapy

== ENCOUNTER → 2024-03-01 | Outpatient (CLI) | payer OTHER ==
[~2024-03-01] MED LIST changes: +ASPIRIN ADULT L81 M2 PO; +VITAMIN D350 MCG PO
== END | disposition home or self-care (01) ==
LOC: ORTHO 08:32
PROVIDERS: ATTEND Orthopaedic Surgery
DX: Z47.1 Aftercare following joint replacement surgery (principal)

== ENCOUNTER 2024-03-03 19:10 | Inpatient (IN) | payer OTHER ==
[~2024-03-03] VITALS: Ht 157.5 cm; Wt 87.7 kg
[2024-03-03 19:15] VITALS: BP 153/81
[2024-03-03] MEDS ORDERED: ceFAZolin sodium 1 GM in SYRINGE INFUSION 10 ML IV ONE (19:15)
[2024-03-03] MEDS ORDERED: ceFAZolin sodium/sodium chlor 10 ML IV ONE (19:20)
[2024-03-03] MEDS ORDERED: Piperacillin Sodium/Tazobact 50 ML IV ONE (20:50)
[2024-03-03] MEDS ORDERED: Lactated Ringer's Solution 1,000 ML IV ONE (21:04)
[2024-03-03] MEDS ORDERED: ACETAMINOPHEN 100 ML IV ONE (21:16)
[2024-03-03] MEDS ORDERED: BISACODYL 5 MG TAB PO PRN (22:30)
[2024-03-03] MEDS ORDERED: Magnesium Hydroxide 30 ML UDC PO PRN (22:30)
[2024-03-03] MEDS ORDERED: ACETAMINOPHEN 325 MG TAB PO PRN (22:30)
[2024-03-03] MEDS ORDERED: Acetaminophen/Hydrocodone 5 MG/325 MG TABLET PO PRN (22:30)
[2024-03-03] MEDS ORDERED: MORPHINE Sulfate 2 MG/ML SYR IV PRN (22:30)
[2024-03-03] MEDS ORDERED: BISACODYL 10 MG SUPP R PRN (22:30)
[2024-03-03] MEDS ORDERED: Ondansetron Hydrochloride 4 MG/2 ML VIAL IV PRN (22:30)
[2024-03-03] MEDS ORDERED: ACETAMINOPHEN 650 MG SUPP R PRN (22:30)
[2024-03-03 23:03] VITALS: BP 134/82
[2024-03-03] MEDS ORDERED: HYDROmorphONE Hydrochloride 0.5 MG/0.5 ML SYRINGE IV PRN (23:10)
[2024-03-03 23:18] VITALS: BP 137/59
[2024-03-03 23:33] VITALS: BP 127/78
[2024-03-03] MEDS ORDERED: HYDROmorphONE Hydrochloride 1 ML IV ONE (23:36)
[2024-03-03 23:48] VITALS: BP 123/78
[2024-03-04] VITALS: BP 135/76
[2024-03-04 00:05] VITALS: BP 120/72
[2024-03-04] MEDS ORDERED: HYDROmorphONE Hydrochloride 1 ML IV ONE (00:05)
[2024-03-04 06:18] LABS: HEMATOCRIT 39.7 % (37.0-47.0); MEAN CORPUSCULAR HGB 30.4 pg (27.0-31.0); MEAN PLATELET VOLUME 11.3 fl (9.6-12.3); PLATELET COUNT AUTOMATED 308 10*3/uL (130-400); RED BLOOD COUNT 4.18 10*6/uL (4.10-5.10); WHITE BLOOD COUNT 9.6 10*3/uL (4.8-10.8)
[2024-03-04 06:20] LABS: ALKALINE PHOSPHATASE 116 U/L (46-116); BUN 11 mg/dl (9-23); CHLORIDE 104 mmol/L (98-107); CHOLESTEROL 141 mg/dL (<200); FREE T4 1.28 ng/dl (0.89-1.76); LDL CHOLESTEROL 94 mg/dL (9-159); MANUAL DIFF REFLEX YES; POTASSIUM 4.3 mmol/L (3.4-5.1); SGPT/ALT 15 U/L (5-49); TOTAL PROTEIN 6.5 gm/dL (6.0-8.0); TRIGLYCERIDES 67 mg/dl (<150)
[2024-03-04 06:49] LABS: BURR CELLS FEW; OVALOCYTES FEW; PLATELET SUFFICIENCY NORMAL (NORMAL); POLYCHROMASIA SLIGHT; TOTAL CELLS COUNTED 100 #CELLS; TOXIC GRANULATION SLIGHT
[2024-03-04 08:00] VITALS: BP 115/71
[2024-03-04] MEDS ORDERED: Piperacillin Sodium/Tazobact 2.25 GM in SODIUM CHLORIDE 0.9% 50 ML IV SCH ×2 (08:00)
[2024-03-04] MEDS ORDERED: PIPERACILLIN SODIUM IV ONE (08:46)
[2024-03-04] MEDS ORDERED: TAZOBACT IV ONE (08:46)
[2024-03-04] MEDS ORDERED: Cholecalciferol 2,000 UNIT TABLET (50 MCG) PO SCH (10:00)
[2024-03-04] MEDS ORDERED: buPROPion XL 150 MG TAB PO SCH (10:00)
[2024-03-04 12:00] VITALS: BP 114/70
[2024-03-04] MEDS ORDERED: IBUPROFEN 800 MG TAB PO PRN (13:55)
[2024-03-04] MEDS ORDERED: SEVOFLURANE 250 ML BOT INH ONE (15:34)
[2024-03-04] MEDS ORDERED: Ondansetron Hydrochloride 4 MG/2 ML VIAL IV ONE (15:34)
[2024-03-04] MEDS ORDERED: Succinylcholine Chloride 200 MG/10 ML SYRINGE IV ONE (15:34)
[2024-03-04] MEDS ORDERED: Ketamine Hydrochloride 500 MG/10 ML VIAL IV ONE (15:34)
[2024-03-04] MEDS ORDERED: Lidocaine Hydrochloride 2% 10 ML AMP IM ONE (15:34)
[2024-03-04] MEDS ORDERED: fentaNYL CITRATE 100 MCG/2 ML VIAL IV ONE (15:34)
[2024-03-04] MEDS ORDERED: PROPOFOL 200 MG/20 ML VIAL IV ONE (15:34)
[2024-03-04] MEDS ORDERED: Dexamethasone Sodium Phospha 20 MG/5 ML VIAL IV ONE (15:34)
[2024-03-04] MEDS ORDERED: Midazolam Hydrochloride 2 MG/2 ML VIAL IV ONE (15:34)
[2024-03-04 15:55] VITALS: BP 120/64
[2024-03-04] MEDS ORDERED: ASPIRIN ENTERIC COATED 81 MG TAB PO SCH (18:00)
[2024-03-04 20:00] VITALS: BP 116/84
[2024-03-04] MEDS ORDERED: Sertraline Hydrochloride 50 MG TAB PO SCH (22:00)
[2024-03-05] VITALS: BP 122/78
[2024-03-05 08:51] VITALS: BP 144/88
[2024-03-05 12:00] VITALS: BP 111/62
[2024-03-05 16:00] VITALS: BP 131/70
[2024-03-05 20:00] VITALS: BP 150/81
[2024-03-06] VITALS: BP 124/86
[2024-03-06 07:16] LABS: BASO % 0.5 % (0.0-1.0); EOS # 0.3 10*3/uL (0.0-0.4); EOS % 3.5 % (1.0-4.0); HEMATOCRIT 35.6 % (37.0-47.0); LYMPH # 1.9 10*3/uL (1.3-4.4); LYMPH % 24.2 % (27.0-41.0); MEAN CELL VOLUME 95.4 fl (81.0-99.0); MEAN CORPUSCULAR HGB 30.6 pg (27.0-31.0); MEAN PLATELET VOLUME 10.7 fl (9.6-12.3); MONO # 0.8 10*3/uL (0.1-1.0); MONO % 10.2 % (3.0-9.0); NEUT # 4.7 10*3/uL (2.3-7.9); NEUT % 61.1 % (47.0-73.0); PLATELET COUNT AUTOMATED 236 10*3/uL (130-400); RED BLOOD COUNT 3.73 10*6/uL (4.10-5.10); WHITE BLOOD COUNT 7.7 10*3/uL (4.8-10.8)
[2024-03-06 07:42] LABS: BUN 12 mg/dl (9-23); CHLORIDE 106 mmol/L (98-107); POTASSIUM 3.7 mmol/L (3.4-5.1)
[2024-03-06 08:00] VITALS: BP 126/79
[2024-03-06 12:00] VITALS: BP 133/84
[2024-03-06 18:00] VITALS: BP 130/79
[2024-03-06 20:00] VITALS: BP 157/81
[2024-03-07] VITALS: BP 115/80
[2024-03-07 08:00] VITALS: BP 127/67
[2024-03-07 12:00] VITALS: BP 101/70
[2024-03-07 16:00] VITALS: BP 134/79
[2024-03-07 20:00] VITALS: BP 123/78
[2024-03-07] MEDS ORDERED: MUPIROCIN 15 GM TUBE NAS SCH (22:00)
[2024-03-08] VITALS: BP 123/74
[2024-03-08 05:16] LABS: BUN 18 mg/dl (9-23); CHLORIDE 107 mmol/L (98-107)
[2024-03-08 07:44] LABS: BASO % 0.5 % (0.0-1.0); EOS # 0.5 10*3/uL (0.0-0.4); HEMATOCRIT 36.1 % (37.0-47.0); LYMPH # 1.6 10*3/uL (1.3-4.4); LYMPH % 20.4 % (27.0-41.0); MEAN CELL VOLUME 95.8 fl (81.0-99.0); MEAN CORPUSCULAR HGB CONC 31.3 g/dl (33.0-37.0); MEAN PLATELET VOLUME 10.4 fl (9.6-12.3); MONO # 0.6 10*3/uL (0.1-1.0); MONO % 7.9 % (3.0-9.0); NEUT # 4.9 10*3/uL (2.3-7.9); NEUT % 63.8 % (47.0-73.0); PLATELET COUNT AUTOMATED 260 10*3/uL (130-400); RED BLOOD COUNT 3.77 10*6/uL (4.10-5.10); RED CELL DISTRI WIDTH 13.8 % (0-14.5); WHITE BLOOD COUNT 7.7 10*3/uL (4.8-10.8)
[2024-03-08 08:00] VITALS: BP 109/74
[2024-03-08 12:00] VITALS: BP 134/85
== END 2024-03-08 14:15 | disposition home health service (06) | DRG 793 ==
LOC: ED 19:10 → 4E 21:03 → EDHOLD 21:03 → 4E 21:15
PROVIDERS: Student in an Organized Health Care Education/Training Program; ADMIT Internal Medicine; ATTEND Internal Medicine
PROC: 0LQL0ZZ Repair Right Upper Leg Tendon, Open Approach (ICD-10-PCS; principal; 2024-03-03)
PROC: 0JBL0ZZ Excision of Right Upper Leg Subcutaneous Tissue and Fascia, Open Approach (ICD-10-PCS; 2024-03-03)
PROC: 2W3 Placement, Anatomical Regions, Immobilization (ICD-10-PCS; 2024-03-03)
DX: T81.31XA Disruption of external operation (surgical) wound, not elsewhere classified, initial encounter (principal); M12.561 Traumatic arthropathy, right knee; Y79.2 Prosthetic and other implants, materials and accessory orthopedic devices associated with adverse incidents; Y92.009 Unspecified place in unspecified non-institutional (private) residence as the place of occurrence of the external cause; S76.111A Strain of right quadriceps muscle, fascia and tendon, initial encounter; Z66 Do not resuscitate; Y83.8 Other surgical procedures as the cause of abnormal reaction of the patient, or of later complication, without mention of misadventure at the time of the procedure; M25.552 Pain in left hip; E55.9 Vitamin D deficiency, unspecified; G89.29 Other chronic pain; F32.A Depression, unspecified; F17.210 Nicotine dependence, cigarettes, uncomplicated; W18.39XA Other fall on same level, initial encounter; Y93.89 Activity, other specified; Y99.8 Other external cause status; Z71.6 Tobacco abuse counseling; Z51.5 Encounter for palliative care; Z79.82 Long term (current) use of aspirin; Z79.899 Other long term (current) drug therapy

== ENCOUNTER → 2024-03-15 | Outpatient (CLI) | payer OTHER | END | disposition home or self-care (01) | LOC: ORTHO 05:35 | PROVIDERS: ATTEND Orthopaedic Surgery | DX: M25.461 Effusion, right knee (principal); M79.89 Other specified soft tissue disorders; Z96.651 Presence of right artificial knee joint ==

== ENCOUNTER → 2024-03-29 | Outpatient (CLI) | payer OTHER | END | disposition home or self-care (01) | LOC: ORTHO 01:40 | PROVIDERS: ATTEND Orthopaedic Surgery | DX: M79.89 Other specified soft tissue disorders (principal); Z47.1 Aftercare following joint replacement surgery ==

== ENCOUNTER → 2024-04-19 | Outpatient (CLI) | payer OTHER | END | disposition home or self-care (01) | LOC: ORTHO 00:26 | PROVIDERS: ATTEND Orthopaedic Surgery | DX: M25.461 Effusion, right knee (principal); M79.89 Other specified soft tissue disorders; Z47.1 Aftercare following joint replacement surgery ==

== ENCOUNTER → 2024-05-04 | Outpatient (CLI) | payer OTHER ==
[2024-05-04 14:02] LABS: FREE T4 1.06 ng/dl (0.89-1.76)
[2024-05-05 08:09] LABS: THYROID PEROXIDASE (TPO) AB 10 IU/mL (0-34)
[2024-05-06 12:56] LABS: THYROGLOBULIN ANTIBODY <1.0 IU/mL (0.0-0.9)
== END | disposition home or self-care (01) ==
LOC: LAB 12:45
PROVIDERS: ATTEND Internal Medicine
DX: E05.90 Thyrotoxicosis, unspecified without thyrotoxic crisis or storm (principal)

== ENCOUNTER 2024-06-05 10:01 | Emergency (ER) | payer OTHER ==
[~2024-06-05] VITALS: Ht 157.4 cm; Wt 93.0 kg
== END 2024-06-05 10:43 | disposition home or self-care (01) ==
LOC: ED 10:01
DX: M25.531 Pain in right wrist (principal); M77.9 Enthesopathy, unspecified; F32.A Depression, unspecified; F41.9 Anxiety disorder, unspecified; G43.909 Migraine, unspecified, not intractable, without status migrainosus; J43.9 Emphysema, unspecified; F17.200 Nicotine dependence, unspecified, uncomplicated; Z98.890 Other specified postprocedural states

== ENCOUNTER → 2024-06-21 | Outpatient (CLI) | payer OTHER | END | disposition home or self-care (01) | LOC: ORTHO 00:21 | PROVIDERS: ATTEND Orthopaedic Surgery | DX: M25.531 Pain in right wrist (principal) ==

== ENCOUNTER → 2025-04-08 | Outpatient (CLI) | payer OTHER | END | disposition home or self-care (01) | LOC: ORTHO 04:04 | PROVIDERS: ATTEND Orthopaedic Surgery | DX: Z96.651 Presence of right artificial knee joint (principal) ==